=== PATIENT | male | born 1990 | race Caucasian/White ===

== ENCOUNTER 2019-07-23 12:54 | Emergency (ER) | payer MEDICAID, OTHER | END 2019-07-23 13:37 | disposition left against medical advice (07) | LOC: UCCORT 12:54 | DX: Z53.21 Procedure and treatment not carried out due to patient leaving prior to being seen by health care provider (principal) ==

== ENCOUNTER 2019-07-23 13:36 | Emergency (ER) | payer OTHER ==
[2019-07-23 15:51] VITALS: BP 128/80
--- NOTE | 2019-07-23 15:52 | UC ---
Throat Pain/Nasal Gael HPI - HPI Summary HPI Summary: Patient is a 29-year-old male presenting with sore throat 3 days. Also notes body aches, headache, and chills. States he "knows it is strep throat." Notes a history of strep throat in the past. He notes subjective fevers. Denies decreased appetite but states it hurts to swallow. Denies taking anything for symptom relief. - History of Current Complaint Stated Complaint: SORE THROAT Hx Obtained From: Patient Onset/Duration: Sudden Onset, Lasting Days Pain Intensity: 7 Pain Scale Used: 0-10 Numeric - Allergies/Home Medications Allergies/Adverse Reactions: Allergies Allergy/AdvReac Type Severity Reaction Status Date / Time No Known Allergies Allergy Verified 07/23/19 15:43 Home Medications: Home Medications Dextromethorphan Hb/Doxylamine [Robitussin Nighttime Cough Dm] 10 ml PO PRN [History] PMH/Surg Hx/FS Hx/Imm Hx Previously Healthy: Yes - Surgical History Surgical History: Yes Surgery Procedure, Year, and Place: right arm ORIF - Family History Known Family History: Positive: Unknown, Non-Contributory - Social History Alcohol Use: Rare Substance Use Type: None Smoking Status (MU): Former Smoker Amount Used/How Often: 7 cigs per day Length of Time of Smoking/Using Tobacco: 10 years When Did the Patient Quit Smoking/Using Tobacco: 07/18/19 Review of Systems All Other Systems Reviewed And Are Negative: Yes Constitutional: Positive: Fever - subjective, Chills, Fatigue ENT: Positive: Sore Throat. Negative: Ear Ache, Nasal Discharge, Sinus Congestion Respiratory: Positive: Negative. Negative: Shortness Of Breath, Cough Cardiovascular: Positive: Negative Gastrointestinal: Positive: Negative. Negative: Vomiting, Nausea Musculoskeletal: Positive: Myalgia Neurological: Positive: Headache Physical Exam Triage Information Reviewed: Yes Appearance: Well-Appearing, No Pain Distress, Well-Nourished Vital Signs: Initial Vital Signs Temp 98.2 F 07/23/19 15:44 Pulse 88 07/23/19 15:44 Resp 18 07/23/19 15:44 BP 128/80 07/23/19 15:44 Pulse Ox 98 07/23/19 15:44 Lab Results 07/23/19 Range/Units 15:57 Group A Strep Rapid Positive A (Negative) Vital Signs Reviewed: Yes Eyes: Positive: Conjunctiva Clear ENT: Positive: Hearing grossly normal, Pharyngeal erythema, TMs normal, Tonsillar swelling - b/l, Tonsillar exudate - b/l, Uvula midline. Negative: Nasal congestion, Nasal drainage, Trismus, Muffled voice, Hoarse voice Neck exam: Normal Neck: Positive: Supple, Tenderness @ - tonsillar nodes, Enlarged Nodes @ - tonsillar Respiratory Exam: Normal Respiratory: Positive: Lungs clear, Normal breath sounds, No respiratory distress Cardiovascular Exam: Normal Cardiovascular: Positive: RRR Neurological: Positive: Alert Psychological: Positive: Age Appropriate Behavior Skin Exam: Normal Throat Pain/Nasal Course/Dx - Course Course Of Treatment: Rapid strep test positive. Treated with penicillin v for 10 days and isntructed to continue with symptomatic treatment as well. He received lidocaine swish spit and ibuprofen here for pain relief. Instructed to follow up with pcp or [facility] if symptoms do not resolve within 10 days. Patient voiced understanding and agreed with treatment plan. - Differential Dx/Diagnosis Provider Diagnosis: Strep pharyngitis Discharge ED - Sign-Out/Discharge Documenting (check all that apply): Patient Departure All imaging exams completed and their final reports reviewed: No Studies - Discharge Plan Condition: Stable Disposition: HOME Prescriptions: Penicillin VK 500 MG TAB(NF) [Penicillin VK 500 mg Tab] 500 mg PO BID #20 tab Patient Education Materials: Strep Throat (ED) Referrals: [facility] [Outside] - If Needed [facility] [Outside] - If Needed Additional Instructions: As discussed, you tested positive for strep throat today. Take penicillin as prescribed for the treatment of strep throat. You may take ibuprofen and/or tylenol as directed for fever and pain relief. You may use over the counter throat sprays or lozenges for symptomatic relief. Get plenty of rest and fluids. Follow up with your primary care provider or one of the referrals listed below if symptoms do not resolve within 10 days. - Billing Disposition and Condition Condition: STABLE Disposition: Home - Attestation Statements Provider Attestation: I was available for consult. This patient was seen by the JOSE. The patient was not presented to , seen by or examined by -Toñito Rowan MD
[2019-07-23] MEDS ORDERED: Lidocaine 2% VISCOUS* 15 ML UDC SWISH SPIT ONE (15:57)
[2019-07-23] MEDS ORDERED: Ibuprofen TAB* 600 MG PO ONE (15:57)
== END 2019-07-23 16:31 | disposition home or self-care (01) ==
LOC: UCCORT 13:36
DX: J02.0 Streptococcal pharyngitis (principal); M79.10 Myalgia, unspecified site; R51 Headache; Z87.891 Personal history of nicotine dependence
CPT/HCPCS: 87651; 99212; A9270-GY; G0463